=== PATIENT | female | born 2000 ===

== ENCOUNTER 2019-09-30 07:10 | Inpatient (IN) | payer MEDICAID ==
[2019-09-30] MEDS ORDERED: Lidocaine 1% 50 ML MDV INJECT PRN (22:24)
[2019-09-30] MEDS ORDERED: Nalbuphine 10 MG/1 ML Vial IVPUSH PRN (22:24)
[2019-09-30] MEDS ORDERED: Terbutaline 1 MG/ML SDV SUBCUT PRN (22:24)
[2019-09-30] MEDS ORDERED: Carboprost Tromethamine 250 MCG/1 ML Amp IM PRN (22:24)
[2019-09-30] MEDS ORDERED: Sodium Chloride 0.9% 10 ML SDV IV PRN (22:24)
[2019-09-30] MEDS ORDERED: Misoprostol 25 MCG (1/4 of 100 MCG) Tab PO PRN ×2 (22:24)
[2019-09-30] MEDS ORDERED: Butorphanol 1 MG/ML SDV IVPUSH PRN (22:24)
[2019-09-30] MEDS ORDERED: Misoprostol 200 MCG Tab PO PRN (22:24)
[2019-09-30] MEDS ORDERED: Misoprostol 25 MCG (1/4 of 100 MCG) Tab VAG PRN ×2 (22:24)
[2019-09-30] MEDS ORDERED: Methylergonovine 0.2 MG/1 ML Amp IM PRN (22:24)
[2019-09-30] MEDS ORDERED: Ondansetron 4 MG/2 ML SDV IVPUSH PRN (22:24)
[2019-09-30] MEDS ORDERED: Water For Irrigation,Sterile 1,000 ML Container IRR PRN (22:24)
[2019-09-30] MEDS ORDERED: Sodium Chloride 0.9% 2.5 ML Syringe FLUSH PRN (22:24)
[2019-09-30] MEDS ORDERED: Sodium Chloride 0.9% 10 ML Syringe FLUSH PRN (22:24)
[2019-09-30] MEDS ORDERED: Tranexamic Acid 1,000 MG in Sodium Chloride 0.9% 100 ML IV PRN (22:24)
[2019-09-30] MEDS ORDERED: Lactated Ringers 1,000 ML IV SCH (22:30)
[2019-09-30] MEDS ORDERED: Oxytocin/0.9 % Sodium Chloride 30 UNIT/500 ML BAG IV SCH ×2 (22:30)
[2019-10-01] MEDS ORDERED: Benzocaine/Menthol 20%-0.5% Spray 78 GM Cannister TOP PRN (07:48)
[2019-10-01] MEDS ORDERED: oxyCODONE 5 MG Tab PO PRN (07:48)
[2019-10-01] MEDS ORDERED: Acetaminophen 500 MG Tab PO PRN (07:48)
[2019-10-01] MEDS ORDERED: Lanolin 100% Cream 7 GM Tube TOP PRN (07:48)
[2019-10-01] MEDS ORDERED: Witch Hazel Medicated Pads 40/Jar TOP PRN (07:48)
[2019-10-01] MEDS ORDERED: Bisacodyl 10 MG Supp RECTAL PRN (07:48)
[2019-10-01] MEDS ORDERED: Docusate Sodium 100 MG Cap PO PRN (07:48)
--- NOTE | 2019-10-01 07:53 | PCM.DEL ---
L & D Note - General Info Date of Service: 10/01/19 Mother's Due Date: 09/28/19 - Delivery Note Cervical Ripening Method: Oxytocin (1 dose) Delivery Outcome: Livebirth Delivery Method: Spontaneous Vaginal Delivery-Single Presentation: Vertex Nuchal Cord: None Anesthesia Type: Local Anesthetic: Lidocaine (Xylocaine) 1% Plain Local Anesthetic Volume: Other (10cc) Amniotic Fluid Description: Clear Episiotomy Type: None Laceration: 2nd Degree, Labial (bilateral) Suture type: Vicryl Suture size: 3-0 Placenta: Intact, Spontaneous Cord: 3 Vessels [place]: Stimulated, Warmed, [place] Used Score 1 min: 9 Score 5 min: 9 - General Info Date of Service: 10/01/19 - Patient Data Weight - Most Recent: 83.915 kg Lab Results Last 24 Hours: Laboratory Results - last 24 hr 09/30/19 09/30/19 Range/Units 22:56 22:56 WBC 9.61 (4.0-11.0) K/uL RBC 3.66 L (4.30-5.90) M/uL Hgb 11.2 L (12.0-16.0) g/dL Hct 32.3 L (36.0-46.0) % MCV 88.3 (80.0-98.0) fL MCH 30.6 (27.0-32.0) pg MCHC 34.7 (31.0-37.0) g/dL RDW Std Deviation 44.5 (28.0-62.0) fl RDW Coeff of [place] 14 (11.0-15.0) % Plt Count 184 (150-400) K/uL MPV 10.60 (7.40-12.00) fL Nucleated RBC % 0.0 /100WBC Nucleated RBCs # 0 K/uL Blood Type O POSITIVE Antibody Screen NEGATIVE Med Orders - Current: Current Medications Acetaminophen (Tylenol Extra Strength) 1,000 mg PO Q6H PRN PRN Reason: Pain Benzocaine/Menthol (Dermoplast Pain Relief 20%-0.5% [place]) 78 gm TOP ASDIRECTED PRN PRN Reason: Perineal Comfort Measure Bisacodyl (Dulcolax) 10 mg RECTAL ONETIME PRN PRN Reason: Constipation Butorphanol Tartrate (Stadol) 1 mg IVPUSH Q1H PRN PRN Reason: Pain Carboprost Tromethamine (Hemabate Ds) 250 mcg IM ASDIRECTED PRN PRN Reason: Post Hemorrhage Docusate Sodium (Colace) 100 mg PO BID PRN PRN Reason: Constipation Emollient Ointment (Lansinoh Hpa) 0 gm TOP ASDIRECTED PRN PRN Reason: Sore Nipples Lactated Ringer's (Ringers, Lactated) 1,000 mls @ 150 mls/hr IV ASDIRECTED CAROLA Last Admin: 10/01/19 05:09 Dose: 999 mls/hr Oxytocin/Sodium Chloride (Oxytocin 30 Unit/500 Ml-Ns) 30 unit in 500 mls @ 2 mls/hr IV TITRATE CAROLA; Protocol Oxytocin/Sodium Chloride (Oxytocin 30 Unit/500 Ml-Ns) 30 unit in 500 mls @ 555 mls/hr IV TITRATE [place] Tranexamic Acid 1,000 mg/ (Sodium Chloride) 110 mls @ 660 mls/hr IV ONETIME PRN PRN Reason: Bleeding Ibuprofen (Motrin) 800 mg PO Q8H PRN PRN Reason: Pain Lidocaine HCl (Xylocaine 1%) 50 ml INJECT ONETIME PRN PRN Reason: Laceration repair Methylergonovine Maleate (Methergine) 0.2 mg IM ASDIRECTED PRN PRN Reason: Post Hemorrhage Misoprostol (Cytotec) 25 mcg VAG ONETIME PRN PRN Reason: Cervical Ripening Last Admin: 09/30/19 23:33 Dose: 25 mcg Misoprostol (Cytotec) 25 mcg VAG Q4H PRN PRN Reason: Cervical Ripening Misoprostol (Cytotec) 200 mcg PO ONETIME PRN PRN Reason: Post Hemorrhage Misoprostol (Cytotec) 25 mcg PO ONETIME PRN PRN Reason: Cervical Ripening Last Admin: 09/30/19 23:29 Dose: 25 mcg Misoprostol (Cytotec) 25 mcg PO Q4H PRN PRN Reason: Cervical Ripening Nalbuphine HCl (Nubain) 10 mg IVPUSH Q1H PRN PRN Reason: Pain (severe 7-10) Last Admin: 10/01/19 05:09 Dose: 10 mg Ondansetron HCl (Zofran) 4 mg IVPUSH Q4H PRN PRN Reason: Nausea/Vomiting Oxycodone HCl (Oxycodone) 5 mg PO Q2H PRN PRN Reason: Pain Sodium Chloride (Saline Flush) 10 ml FLUSH ASDIRECTED PRN PRN Reason: Keep Vein Open Sodium Chloride (Saline Flush) 2.5 ml FLUSH ASDIRECTED PRN PRN Reason: Keep Vein Open Sodium Chloride (Normal Saline) 10 ml IV ASDIRECTED PRN PRN Reason: IV Use Sterile Water (Sterile Water For Irrigation) 1,000 ml IRR ASDIRECTED PRN PRN Reason: delivery Terbutaline Sulfate (Brethine) 0.25 mg SUBCUT ASDIRECTED PRN PRN Reason: Tacysystole Witch Noreen (Tucks) 1 pad TOP ASDIRECTED PRN PRN Reason: comfort care - Problem List & Annotations (1) Vaginal delivery SNOMED Code(s): 980817306 Code(s): O80 - ENCOUNTER FOR FULL-TERM UNCOMPLICATED DELIVERY Status: Acute Current Visit: Yes - Problem List Review Problem List Initiated/Reviewed/Updated: Yes - My Orders Last 24 Hours: My Active Orders 09/30/19 22:24 Patient Status [ADT] Routine Bedrest Bathroom Privileges [RC] ASDIRECTED Communication Order [RC] ASDIRECTED Communication Order [RC] ASDIRECTED Communication Order [RC] ASDIRECTED Heart Tones [RC] CONTINUOUS Non Stress Test [RC] PER UNIT ROUTINE May Shower [RC] ASDIRECTED Notify Provider [RC] PRN Notify Provider [RC] PRN Notify Provider [RC] PRN Notify Provider [RC] STAT Oxygen Therapy [RC] ASDIRECTED Up ad Ludmila [RC] ASDIRECTED Vaginal Exam [RC] PRN Vital Signs [RC] PER UNIT ROUTINE Butorphanol [Stadol] 1 mg IVPUSH Q1H PRN Carboprost Tromethamine [Hemabate DS] 250 mcg IM ASDIRECTED PRN Lidocaine 1% [Xylocaine 1%] 50 ml INJECT ONETIME PRN Methylergonovine [Methergine] 0.2 mg IM ASDIRECTED PRN Nalbuphine [Nubain] 10 mg IVPUSH Q1H PRN Ondansetron [Zofran] 4 mg IVPUSH Q4H PRN Sodium Chloride 0.9% [Normal Saline] 10 ml IV ASDIRECTED PRN Sodium Chloride 0.9% [Saline Flush] 10 ml FLUSH ASDIRECTED PRN Sodium Chloride 0.9% [Saline Flush] 2.5 ml FLUSH ASDIRECTED PRN Terbutaline [Brethine] 0.25 mg SUBCUT ASDIRECTED PRN Tranexamic Acid [Cyklokapron] 1,000 mg Sodium Chloride 0.9% [Normal Saline] 100 ml IV ONETIME Water For Irrigation,Sterile [Sterile Water for Irrigation] 1,000 ml IRR ASDIRECTED PRN miSOPROStoL [Cytotec] 200 mcg PO ONETIME PRN miSOPROStoL [Cytotec] 25 mcg PO ONETIME PRN miSOPROStoL [Cytotec] 25 mcg PO Q4H PRN miSOPROStoL [Cytotec] 25 mcg VAG ONETIME PRN miSOPROStoL [Cytotec] 25 mcg VAG Q4H PRN Scalp Electrode [WOMSER] Per Unit Routine Peripheral IV Insertion Adult [OM.PC] Routine Resuscitation Status Routine 09/30/19 22:30 Lactated Ringers [Ringers, Lactated] 1,000 ml IV ASDIRECTED Oxytocin/0.9 % Sodium Chloride [Oxytocin 30 Unit/500 ML-NS] 30 unit in 500 ml IV TITRATE Oxytocin/0.9 % Sodium Chloride [Oxytocin 30 Unit/500 ML-NS] 30 unit in 500 ml IV TITRATE Medication Administration Instruction [OM.PC] Q3H 09/30/19 22:56 RAPID PLASMA REAGIN, QUANT [REF] Routine 10/01/19 07:48 Patient Status [ADT] Routine May Shower [RC] ASDIRECTED Notify Provider Vital Signs [RC] ASDIRECTED Up ad Ludmila [RC] ASDIRECTED Vital Signs [RC] PER UNIT ROUTINE Acetaminophen [Tylenol Extra Strength] 1,000 mg PO Q6H PRN Benzocaine/Menthol [Dermoplast Pain Relief 20%-0.5% [place]] 78 gm TOP ASDIRECTED PRN Docusate Sodium [Colace] 100 mg PO BID PRN Ibuprofen [Motrin] 800 mg PO Q8H PRN Lanolin [Lansinoh HPA] See Dose Instructions TOP ASDIRECTED PRN Witch Noreen [Tucks] 1 pad TOP ASDIRECTED PRN bisacodyL [Dulcolax] 10 mg RECTAL ONETIME PRN oxyCODONE 5 mg PO Q2H PRN Assess Lochia [WOMSER] Per Unit Routine Assess Uterine Involution [WOMSER] Per Unit Routine Breast Pump [WOMSER] Per Unit Routine DVT/VTE Prophylaxis Reflex [OM.PC] Routine Peripheral IV Discontinue [OM.PC] Routine 10/01/19 07:49 Ice Therapy [OM.PC] Per Unit Routine Perineal Care [OM.PC] Per Unit Routine Sitz Bath [OM.PC] Per Unit Routine 10/01/19 07:50 Antiembolic Devices [RC] .Routine VTE/DVT Education [RC] PER UNIT ROUTINE BLOOD GAS VENOUS UMBILICAL [BG] Routine 10/01/19 Breakfast Regular Diet [DIET] 10/02/19 05:11 HEMOGLOBIN/HEMATOCRIT,HH [HEME] Timed - Assessment Assessment:: 18yo s/p at 40w3d. - Plan Plan:: Admit to for routine care.
[2019-10-01] MEDS: Ibuprofen 800 MG Tab PO PRN (08:23)
--- NOTE | 2019-10-01 11:15 | OR ---
SURGEON: Tania Quintanilla MD DATE OF PROCEDURE: 10/01/2019 PREOPERATIVE DIAGNOSES: 1. A 18-year-old, G1, P0, at 40 weeks and 3 days' gestation. 2. Induction of labor. POSTOPERATIVE DIAGNOSES: 1. A 18-year-old, G1, P 1-0-0-1, status post spontaneous vaginal delivery at 40 weeks and 3 days' gestation. 2. Bilateral labial and second-degree perineal laceration. PROCEDURES: 1. Spontaneous vaginal delivery. 2. Repair of bilateral labial and second-degree perineal laceration. PRIMARY SURGEON: Tania Quintanilla MD. ANESTHESIA: Local. ESTIMATED BLOOD LOSS: 400 mL. FINDINGS: Live male infant in cephalic presentation. scores 9 and 9 at one and five minutes respectively. Weight 6 pounds 15 ounces. Umbilical venous cord gas pending. Cord blood pending. Placenta intact and with 3-vessel cord. INDICATIONS: This is a 18-year-old, G1, P0, who presented at 40 weeks and 3 days' gestation for planned induction of labor. She was given a dose of misoprostol with subsequent increase in contractions and cervical dilation. She progressed to complete cervical dilation without additional augmentation methods. DESCRIPTION OF PROCEDURE: The patient progressed to complete cervical dilation without epidural in place. She pushed to spontaneous vaginal delivery of a live male . scores 9 and 9 at one and five minutes respectively. Weight pending. Umbilical venous cord gas pending. The head was delivered followed quickly by the shoulders and the remainder of the body. The was placed on the maternal abdomen. After approximately 60 seconds, the cord was clamped and cut. The placenta was then delivered via the Marr-Sears maneuver, intact, and with 3-vessel cord. The perineum was inspected and a second-degree perineal and bilateral labial lacerations were noted. 1% lidocaine without epinephrine was infiltrated into these lacerations, which were subsequently repaired with 3-0 Vicryl to anatomy and hemostasis. The fundus was firm with scant bleeding. The mother and baby tolerated the delivery well. [id number] / MODL /[id number]
[2019-10-02] MEDS: Ibuprofen 800 MG Tab PO PRN (03:27)
--- NOTE | 2019-10-02 10:46 | PCM.PNPP ---
- General Info Date of Service: 10/02/19 Functional Status: Reports: Pain Controlled, Tolerating Diet, Ambulating, Urinating, Other (Light bleeding) - Review of Systems General: Reports: No Symptoms HEENT: Reports: No Symptoms Pulmonary: Reports: No Symptoms Cardiovascular: Reports: No Symptoms Gastrointestinal: Reports: No Symptoms Genitourinary: Reports: No Symptoms Musculoskeletal: Reports: No Symptoms Skin: Reports: No Symptoms Neurological: Reports: No Symptoms Psychiatric: Reports: No Symptoms - Patient Data Vital Signs - Most Recent: Last Vital Signs Temp 36.4 C 10/02/19 04:58 Pulse 76 10/02/19 04:58 Resp 16 10/02/19 04:58 BP 93/57 L 10/02/19 04:58 Pulse Ox 95 10/02/19 04:58 Weight - Most Recent: 185 lb Lab Results - Last 24 Hours: Laboratory Results - last 24 hr 10/02/19 Range/Units 06:13 Hgb 9.4 L (12.0-16.0) g/dL Hct 27.6 L (36.0-46.0) % Med Orders - Current: Current Medications Acetaminophen (Tylenol Extra Strength) 1,000 mg PO Q6H PRN PRN Reason: Pain Last Admin: 10/01/19 20:47 Dose: 1,000 mg Benzocaine/Menthol (Dermoplast Pain Relief 20%-0.5% [place]) 78 gm TOP ASDIRECTED PRN PRN Reason: Perineal Comfort Measure Last Admin: 10/01/19 08:22 Dose: 1 can Bisacodyl (Dulcolax) 10 mg RECTAL ONETIME PRN PRN Reason: Constipation Butorphanol Tartrate (Stadol) 1 mg IVPUSH Q1H PRN PRN Reason: Pain Carboprost Tromethamine (Hemabate Ds) 250 mcg IM ASDIRECTED PRN PRN Reason: Post Hemorrhage Docusate Sodium (Colace) 100 mg PO BID PRN PRN Reason: Constipation Last Admin: 10/01/19 08:23 Dose: 100 mg Emollient Ointment (Lansinoh Hpa) 0 gm TOP ASDIRECTED PRN PRN Reason: Sore Nipples Last Admin: 10/01/19 08:23 Dose: 7 gram Lactated Ringer's (Ringers, Lactated) 1,000 mls @ 150 mls/hr IV ASDIRECTED CAROLA Last Admin: 10/01/19 05:09 Dose: 999 mls/hr Oxytocin/Sodium Chloride (Oxytocin 30 Unit/500 Ml-Ns) 30 unit in 500 mls @ 2 mls/hr IV TITRATE CAROLA; Protocol Oxytocin/Sodium Chloride (Oxytocin 30 Unit/500 Ml-Ns) 30 unit in 500 mls @ 555 mls/hr IV TITRATE CAROLA Tranexamic Acid 1,000 mg/ (Sodium Chloride) 110 mls @ 660 mls/hr IV ONETIME PRN PRN Reason: Bleeding Ibuprofen (Motrin) 800 mg PO Q8H PRN PRN Reason: Pain Last Admin: 10/02/19 03:27 Dose: 800 mg Lidocaine HCl (Xylocaine 1%) 50 ml INJECT ONETIME PRN PRN Reason: Laceration repair Last Admin: 10/01/19 08:24 Dose: 50 ml Methylergonovine Maleate (Methergine) 0.2 mg IM ASDIRECTED PRN PRN Reason: Post Hemorrhage Misoprostol (Cytotec) 25 mcg VAG ONETIME PRN PRN Reason: Cervical Ripening Last Admin: 09/30/19 23:33 Dose: 25 mcg Misoprostol (Cytotec) 25 mcg VAG Q4H PRN PRN Reason: Cervical Ripening Misoprostol (Cytotec) 200 mcg PO ONETIME PRN PRN Reason: Post Hemorrhage Misoprostol (Cytotec) 25 mcg PO ONETIME PRN PRN Reason: Cervical Ripening Last Admin: 09/30/19 23:29 Dose: 25 mcg Misoprostol (Cytotec) 25 mcg PO Q4H PRN PRN Reason: Cervical Ripening Nalbuphine HCl (Nubain) 10 mg IVPUSH Q1H PRN PRN Reason: Pain (severe 7-10) Last Admin: 10/01/19 05:09 Dose: 10 mg Ondansetron HCl (Zofran) 4 mg IVPUSH Q4H PRN PRN Reason: Nausea/Vomiting Oxycodone HCl (Oxycodone) 5 mg PO Q2H PRN PRN Reason: Pain Last Admin: 10/01/19 10:17 Dose: 5 mg Sodium Chloride (Saline Flush) 10 ml FLUSH ASDIRECTED PRN PRN Reason: Keep Vein Open Sodium Chloride (Saline Flush) 2.5 ml FLUSH ASDIRECTED PRN PRN Reason: Keep Vein Open Sodium Chloride (Normal Saline) 10 ml IV ASDIRECTED PRN PRN Reason: IV Use Sterile Water (Sterile Water For Irrigation) 1,000 ml IRR ASDIRECTED PRN PRN Reason: delivery Last Admin: 10/01/19 08:24 Dose: 1,000 ml Terbutaline Sulfate (Brethine) 0.25 mg SUBCUT ASDIRECTED PRN PRN Reason: Tacysystole Witch Noreen (Tucks) 1 pad TOP ASDIRECTED PRN PRN Reason: comfort care Last Admin: 10/01/19 08:23 Dose: 1 tub - Infant Interaction Infant Disposition, : at Bedside Interaction: Holding Infant Feeding: Breastfed ; Nursed Well Support Person: - Recovery Exam Fundal Tone: Firm Fundal Level: 1 Fingerbreadths Below Umbilicus Fundal Placement: Midline Lochia Amount: Small Lochia Color: Rubra/Red Perineum Description: Intact, Minimal Bruising/Swelling Episiotomy/Laceration: Approximated Bladder Status: Voiding Urinary Elimination: Voided - Exam General: Alert, Oriented, Cooperative, No Acute Distress HEENT: Pupils Equal, Pupils Reactive Neck: Supple, Trachea Midline, No JVD Lungs: Normal Respiratory Effort GI/Abdominal Exam: Normal Bowel Sounds, Soft, Non-Tender, No Distention Extremities: Normal Inspection, Normal Range of Motion, Non-Tender, No Pedal Edema Wound/Incisions: Healing Well Neurological: No New Focal Deficit Psy/Mental Status: Alert, Normal Affect, Normal Mood - Problem List Review Problem List Initiated/Reviewed/Updated: Yes - My Orders Last 24 Hours: My Active Orders 10/02/19 10:39 Ready for Discharge [RC] PER UNIT ROUTINE - Assessment Assessment:: 18yo s/p PPD1 at 40w3d. - Plan Plan:: Vitals stable. Hgb 9.4, bleeding is light. No s/s of anemia. Advised to continue iron supplements BID Pain controlled, continue motrin and sitz baths at home Stable for discharge home today. Reviewed instructions.
== END 2019-10-02 13:45 | disposition home or self-care (01) | DRG 807 ==
LOC: MW.OB 07:10 → OBSVTOIN 10-01 07:10 → MW.OB 10-01 10:30
PROVIDERS: ADMIT Obstetrics & Gynecology; ATTEND Obstetrics & Gynecology
PROC: 10E0XZZ Delivery of Products of Conception, External Approach (ICD-10-PCS; principal; 2019-10-01)
PROC: 0KQM0ZZ Repair Perineum Muscle, Open Approach (ICD-10-PCS; 2019-10-01)
PROC: 3E033VJ Introduction of Other Hormone into Peripheral Vein, Percutaneous Approach (ICD-10-PCS; 2019-10-01)
PROC: 10907ZC Drainage of Amniotic Fluid, Therapeutic from Products of Conception, Via Natural or Artificial Opening (ICD-10-PCS; 2019-10-01)
PROC: 0UQMXZZ Repair Vulva, External Approach (ICD-10-PCS; 2019-10-01)
DX: O48.0 Post-term pregnancy (principal); Z37.0 Single live birth; Z3A.40 40 weeks gestation of pregnancy; O70.1 Second degree perineal laceration during delivery
CPT/HCPCS: 36415; 59025; 59409; 82803; 85014; 85018; 85027; 86593; 86850; 86900; 86901; A9270-GY; J2001; J2300; J7120

== ENCOUNTER 2023-06-28 19:29 | Inpatient (IN) | payer MEDICAID ==
[2023-06-28] MEDS ORDERED: Methylergonovine 0.2 MG/1 ML Amp IM PRN (22:48)
[2023-06-28] MEDS ORDERED: Sodium Chloride 0.9% 10 ML Syringe FLUSH PRN (22:48)
[2023-06-28] MEDS ORDERED: Sodium Chloride 0.9% 20 ML SDV IV PRN (22:48)
[2023-06-28] MEDS ORDERED: Ondansetron 4 MG/2 ML SDV IVPUSH PRN (22:48)
[2023-06-28] MEDS ORDERED: Carboprost Tromethamine 250 MCG/1 mL Vial IM PRN (22:48)
[2023-06-28] MEDS ORDERED: Tranexamic Acid IN NACL,ISO-OS 1,000 MG in Premix Bag 1 BAG IV PRN ×2 (22:48)
[2023-06-28] MEDS ORDERED: Misoprostol 200 MCG Tab PO PRN (22:48)
[2023-06-28] MEDS ORDERED: Lidocaine 1% 50 ML MDV INJECT PRN (22:48)
[2023-06-28] MEDS ORDERED: Terbutaline 1 MG/ML SDV SUBCUT PRN (22:48)
[2023-06-28] MEDS ORDERED: Sodium Chloride 0.9% 2.5 ML Syringe FLUSH PRN (22:48)
[2023-06-28] MEDS ORDERED: Water For Irrigation,Sterile 1,000 ML Container IRR PRN (22:48)
[2023-06-28] MEDS ORDERED: Oxytocin/0.9 % Sodium Chloride 30 UNIT/500 ML BAG IV SCH ×2 (23:00)
[2023-06-28] MEDS ORDERED: Nalbuphine 10 MG/0.5 ML Syringe IVPUSH SCH (23:00)
[2023-06-28] MEDS: Insulin Regular in 0.9 % NACL 100 ML IV SCH (23:36)
[2023-06-28] MEDS: Lactated Ringers 1,000 ML IV SCH (23:36)
[2023-06-28] MEDS: Misoprostol 25 MCG (1/4 of 100 MCG) Tab VAG PRN (23:48)
[2023-06-29 00:35] LABS: HEMATOCRIT 31.5 % (36.0-46.0); HEMOGLOBIN 10.8 g/dL (12.0-16.0); MEAN CORPUSCULAR HEMOGLOBIN 30.5 pg (27.0-32.0); MEAN CORPUSCULAR HGB CONC 34.3 g/dL (31.0-37.0); MEAN PLATELET VOLUME 10.3 fL (7.40-12.00); RED BLOOD CELL COUNT 3.54 M/uL (4.30-5.90); WHITE BLOOD CELL COUNT,WBC 8.35 K/uL (4.0-11.0)
[2023-06-29] MEDS: Misoprostol 25 MCG (1/4 of 100 MCG) Tab VAG PRN ×3 (00:39→04:48)
[2023-06-29] MEDS ORDERED: ePHEDrine 50 MG/ML SDV IVPUSH PRN ×2 (00:43)
[2023-06-29] MEDS ORDERED: Ropivacaine HCl/PF 400 MG in Premix Bag 1 BAG EPIDUR SCH (00:45)
[2023-06-29] MEDS: Lactated Ringers 1,000 ML IV SCH (08:16)
[2023-06-29] MEDS ORDERED: Lidocaine 2% with EPINEPHrine 1:200,000 20 ML SDV ONE (10:12)
[2023-06-29] MEDS: Phenylephrine HCl 0.5 MG/5 ML AMP IVPUSH PRN ×6 (10:24→11:01)
[2023-06-29] MEDS: Insulin Regular in 0.9 % NACL 100 ML IV SCH (11:02)
[2023-06-29] MEDS ORDERED: Dexamethasone 4 MG/ML SDV ONE (11:41)
[2023-06-29] MEDS ORDERED: Ondansetron 4 MG/2 ML SDV ONE (11:42)
[2023-06-29] MEDS ORDERED: Methylergonovine 0.2 MG/1 ML Amp IM PRN (11:59)
[2023-06-29] MEDS ORDERED: Lanolin 100% Cream 7 GM Tube TOP PRN (11:59)
[2023-06-29] MEDS ORDERED: Docusate Sodium 100 MG Cap PO PRN (11:59)
[2023-06-29] MEDS ORDERED: Bisacodyl 10 MG Supp RECTAL PRN (11:59)
[2023-06-29] MEDS ORDERED: Ibuprofen 400 MG Tab PO PRN (11:59)
[2023-06-29] MEDS ORDERED: Tranexamic Acid IN NACL,ISO-OS 1,000 MG in Premix Bag 1 BAG IV PRN ×2 (11:59)
[2023-06-29] MEDS ORDERED: Witch Hazel Medicated Pads 40/Jar TOP PRN (11:59)
[2023-06-29] MEDS ORDERED: Acetaminophen 500 MG Tab PO PRN (11:59)
[2023-06-29] MEDS ORDERED: Benzocaine/Menthol 20%-0.5% Spray 78 GM Cannister TOP PRN (11:59)
[2023-06-29 12:20] LABS: PH,UMBILICAL ARTERIAL 7.23 (7.18-7.38); PH,UMBILICAL VENOUS 7.266 (7.25-7.45)
[2023-06-29] MEDS: Ibuprofen 800 MG Tab PO PRN (14:06)
[2023-06-29] MEDS: Acetaminophen 500 MG Tab PO PRN (14:07)
[2023-06-30 06:03] LABS: HEMATOCRIT 30.8 % (36.0-46.0); HEMOGLOBIN 10.3 g/dL (12.0-16.0)
[2023-06-30] MEDS: Acetaminophen 500 MG Tab PO PRN ×2 (07:41→16:00)
[2023-06-30] MEDS: Ibuprofen 800 MG Tab PO PRN (14:57)
== END 2023-06-30 17:47 | disposition home or self-care (01) | DRG 807 ==
LOC: MW.OB 19:29 → OBSVTOIN 06-29 11:31 → MW.OB 06-29 15:50
PROVIDERS: ADMIT Obstetrics & Gynecology; ATTEND Obstetrics & Gynecology
PROC: 10E0XZZ Delivery of Products of Conception, External Approach (ICD-10-PCS; principal; 2023-06-29)
PROC: 10907ZC Drainage of Amniotic Fluid, Therapeutic from Products of Conception, Via Natural or Artificial Opening (ICD-10-PCS; 2023-06-29)
PROC: 3E0DXGC Introduction of Other Therapeutic Substance into Mouth and Pharynx, External Approach (ICD-10-PCS; 2023-06-29)
PROC: 3E033VJ Introduction of Other Hormone into Peripheral Vein, Percutaneous Approach (ICD-10-PCS; 2023-06-29)
PROC: 3E0R3BZ Introduction of Anesthetic Agent into Spinal Canal, Percutaneous Approach (ICD-10-PCS; 2023-06-29)
PROC: 00HU33Z Insertion of Infusion Device into Spinal Canal, Percutaneous Approach (ICD-10-PCS; 2023-06-29)
DX: O24.410 Gestational diabetes mellitus in pregnancy, diet controlled (principal); Z37.0 Single live birth; O99.02 Anemia complicating childbirth; D64.9 Anemia, unspecified; O48.0 Post-term pregnancy; O76 Abnormality in fetal heart rate and rhythm complicating labor and delivery; Z3A.40 40 weeks gestation of pregnancy
CPT/HCPCS: 36415; 59025; 59409; 82803; 82947; 85014; 85018; 85027; 86592; 86850; 86900; 86901; A9270-GY; J1100; J1815; J2371; J2405; J2590; J3490; J7120